=== PATIENT | male | born 1975 | race Caucasian/White ===

== ENCOUNTER 2019-05-15 06:34 | Emergency (ER) | payer MEDICAID ==
[2019-05-15] MEDS: KETOROLAC 30 MG INJ IV (07:45)
[2019-05-15] MEDS: BELLADONNA/PHENOBARBITAL TAB PO (07:45)
[2019-05-15] MEDS: SOD CHLORIDE 0.9% 1,000 ML IV (07:45)
[2019-05-15] MEDS: LIDOCAINE/MYLANTA 40 ML BTL PO (07:45)
[2019-05-15] MEDS: FAMOTIDINE 20 MG INJ IV (07:45)
== END 2019-05-15 10:27 | disposition home or self-care (01) ==
LOC: FTE 06:34
DX: R10.13 Epigastric pain (principal); F17.210 Nicotine dependence, cigarettes, uncomplicated
CPT/HCPCS: 36415; 74176; 76705; 76775; 80053; 81003; 83690; 85025; 96361; 96374; 96375; 99285-25